=== PATIENT | female | born 1955 | race Caucasian/White ===

== ENCOUNTER 2017-03-14 08:56 | Emergency (ER) | payer OTHER ==
[2017-03-14 10:06] LABS: BASOPHIL % 0.6 % (0-2); CALCIUM 9.2 mg/dL (8.5-10.1); CARBON DIOXIDE 25.7 mmol/L (21-32); CREATININE SERUM 1.2 mg/dL (0.6-1.0); PLATELET COUNT 199 x10^3mcL (130-400); POTASSIUM SERUM 3.7 mmol/L (3.5-5.1); RED CELL DISTRIBUTION WIDTH 13.3 % (11.5-14.5)
[2017-03-14 10:11] LABS: ALBUMIN 3.6 g/dL (3.4-5.0); BILIRUBIN TOTAL 0.3 mg/dL (0.20-1.00); TOTAL PROTEIN, SERUM 7.9 g/dL (6.4-8.2)
[2017-03-14 10:49] VITALS: BP 125/62
== END 2017-03-14 10:49 | disposition home or self-care (01) ==
LOC: ED 08:56
PROVIDERS: Emergency Medicine
DX: R06.02 Shortness of breath (principal); N28.9 Disorder of kidney and ureter, unspecified; E11.9 Type 2 diabetes mellitus without complications; I10 Essential (primary) hypertension; E78.00 Pure hypercholesterolemia, unspecified
CPT/HCPCS: 36415; J7613; J7644

== ENCOUNTER 2017-06-07 08:46 | Inpatient (IN) | payer OTHER ==
[~2017-06-07] VITALS: Ht 152.4 cm; Wt 77.1 kg
[2017-06-07 09:51] LABS: BASOPHIL % 0.7 % (0-2); PLATELET COUNT 251 x10^3mcL (130-400); RED CELL DISTRIBUTION WIDTH 13.4 % (11.5-14.5)
[2017-06-07 10:01] LABS: CARBON DIOXIDE 23.8 mmol/L (21-32); CREATININE SERUM 1.1 mg/dL (0.6-1.0); POTASSIUM SERUM 3.2 mmol/L (3.5-5.1)
[2017-06-07 10:13] LABS: BILIRUBIN TOTAL 0.3 mg/dL (0.20-1.00); T4(THYROXINE) 7.9 ug/dL (4.7-13.3); TOTAL PROTEIN, SERUM 6.8 g/dL (6.4-8.2)
[2017-06-07 11:25] LABS: microscopic required? YES; urine erythrocyte NEGATIVE (NEGATIVE)
[2017-06-07] MEDS ORDERED: GLUCOPHAGE XR500 MG PO (12:21)
[2017-06-07 13:10] VITALS: BP 147/53
[2017-06-07 13:13] VITALS: BP 147/53
[2017-06-07] MEDS ORDERED: BENAZEPRIL HYDR20 M1 PO (14:42)
[2017-06-07] MEDS ORDERED: SIMVASTATIN5 M2 PO (14:43)
[2017-06-07 15:19] LABS: CHOLESTEROL/HDL RATIO 2.8; MAGNESIUM 1.4 mg/dL (1.8-2.4); PHOSPHOROUS 4.5 mg/dL (2.5-4.9)
[2017-06-07 15:22] LABS: AMPHETAMINE QUAL UR NONE DETECTED (NEG <=1000)
[2017-06-07 15:30] LABS: FREE T4 1.15 ng/dL (0.76-1.46); FREE THYROXINE INDEX 2.5 ug/dL (1.4-4.5); T4(THYROXINE) 7.4 ug/dL (4.7-13.3)
[2017-06-07 16:02] LABS: T3 TOTAL 0.81 ng/mL
[2017-06-07 17:25] VITALS: BP 127/58
[2017-06-07 21:22] VITALS: BP 137/55
[2017-06-07 22:53] VITALS: BP 137/55
[2017-06-08 05:28] VITALS: BP 136/56
[2017-06-08 06:48] LABS: PLATELET COUNT 240 x10^3mcL (130-400); RED CELL DISTRIBUTION WIDTH 13.8 % (11.5-14.5)
[2017-06-08 07:09] LABS: CALCIUM 8.1 mg/dL (8.5-10.1); CARBON DIOXIDE 23.4 mmol/L (21-32); CHLORIDE SERUM 110 mmol/L (98-107); CREATININE SERUM 0.8 mg/dL (0.6-1.0); GFR1 > 60 mL/min; GLUCOSE SERUM 160 mg/dL (74-106); MAGNESIUM 1.6 mg/dL (1.8-2.4); PHOSPHOROUS 3.2 mg/dL (2.5-4.9); POTASSIUM SERUM 4.4 mmol/L (3.5-5.1); SODIUM SERUM 143 mmol/L (136-145)
[2017-06-08 07:12] LABS: BASOPHIL % 0 % (0-2)
[2017-06-08 10:31] VITALS: BP 142/54
[2017-06-08 13:51] VITALS: BP 134/54
[2017-06-08 17:21] VITALS: BP 160/67
[2017-06-08 21:21] VITALS: BP 133/52
[2017-06-09 05:50] VITALS: BP 148/61
[2017-06-09 06:31] LABS: BASOPHIL % 0.2 % (0-2); PLATELET COUNT 219 x10^3mcL (130-400); RED CELL DISTRIBUTION WIDTH 14.2 % (11.5-14.5)
[2017-06-09 06:44] LABS: CALCIUM 8.3 mg/dL (8.5-10.1); CARBON DIOXIDE 23.3 mmol/L (21-32); CREATININE SERUM 1.1 mg/dL (0.6-1.0); MAGNESIUM 2.5 mg/dL (1.8-2.4); PHOSPHOROUS 3.1 mg/dL (2.5-4.9)
[2017-06-09 09:53] VITALS: BP 156/63
[2017-06-09 17:12] VITALS: BP 120/60
[2017-06-09 21:28] VITALS: BP 135/60
[2017-06-10 05:50] VITALS: BP 147/72
[2017-06-10 06:52] LABS: CALCIUM 7.8 mg/dL (8.5-10.1); CARBON DIOXIDE 24.6 mmol/L (21-32); CHLORIDE SERUM 111 mmol/L (98-107); CREATININE SERUM 0.9 mg/dL (0.6-1.0); GFR1 > 60 mL/min; GLUCOSE SERUM 136 mg/dL (74-106); MAGNESIUM 1.5 mg/dL (1.8-2.4); PHOSPHOROUS 3.1 mg/dL (2.5-4.9); POTASSIUM SERUM 3.9 mmol/L (3.5-5.1); SODIUM SERUM 144 mmol/L (136-145)
[2017-06-10 07:26] LABS: PLATELET COUNT 220 x10^3mcL (130-400)
[2017-06-10 07:29] LABS: BASOPHIL % 4.2 % (0-2)
[2017-06-10] MEDS ORDERED: COZ50 PO (09:49)
[2017-06-10] MEDS ORDERED: ECO81 PO (09:50)
[2017-06-10] MEDS ORDERED: LORAZEPAM0.5 MG PO (09:51)
[2017-06-10] MEDS ORDERED: BUS5 PO (09:52)
[2017-06-10] MEDS ORDERED: ROBDML PO (09:52)
[2017-06-10] MEDS ORDERED: METFORMIN HCL1000 MG PO (09:53)
[2017-06-10 10:24] VITALS: BP 141/54
[2017-06-10 14:29] VITALS: BP 141/54
[2017-06-10 14:42] VITALS: BP 141/54
== END 2017-06-10 15:57 | disposition home or self-care (01) | DRG 203 ==
LOC: ED 08:46 → MU 11:55 → DU 11:55 → MU 06-08 07:40
PROVIDERS: Emergency Medicine; Family Medicine; ADMIT Student in an Organized Health Care Education/Training Program
DX: M94.0 Chondrocostal junction syndrome [Tietze] (principal); N17.0 Acute kidney failure with tubular necrosis; D68.69 Other thrombophilia; E87.2 Acidosis; E11.22 Type 2 diabetes mellitus with diabetic chronic kidney disease; E44.0 Moderate protein-calorie malnutrition; N18.3 Chronic kidney disease, stage 3 (moderate); E11.65 Type 2 diabetes mellitus with hyperglycemia; E87.8 Other disorders of electrolyte and fluid balance, not elsewhere classified; E83.51 Hypocalcemia; N39.0 Urinary tract infection, site not specified; E87.6 Hypokalemia; E66.9 Obesity, unspecified; E78.5 Hyperlipidemia, unspecified; E02 Subclinical iodine-deficiency hypothyroidism; Z68.33 Body mass index [BMI] 33.0-33.9, adult; Z79.84 Long term (current) use of oral hypoglycemic drugs; F41.9 Anxiety disorder, unspecified; D64.9 Anemia, unspecified; I16.0 Hypertensive urgency; E86.0 Dehydration; I12.9 Hypertensive chronic kidney disease with stage 1 through stage 4 chronic kidney disease, or unspecified chronic kidney disease
CPT/HCPCS: 83880; 84439; 87804; 94150; J0696; J1885; J1956; J2270; J2920; J2930; J3475; J7030; J7040; J7613; J7620; J7644; Q0092